=== PATIENT | male | born 1945 | race Caucasian/White ===

== ENCOUNTER 2016-11-16 09:54 | Observation (INO) | payer MEDICARE, BC ==
[2016-11-16] MEDS ORDERED: ceFAZolin 2 GM PREMIX(*) 2 GM/50 ML BAG IVPB ONE (11:00)
[2016-11-16 11:04] LABS: Hematocrit 46 % (42-52); Hemoglobin 15.3 g/dl (14.0-18.0); Mean Corpuscular HGB Conc 34 g/dl (31-36); Mean Corpuscular Hemoglobin 32 pg (27-31); Mean Corpuscular Volume 96 fL (80-94); Mean Platelet Volume 8 um3 (7.4-10.4); Red Blood Count 4.77 10^6/ul (4.0-5.4); Red Cell Distribution Width 13 % (10.5-15); White Blood Count 7.8 10^3/ul (3.5-10.8)
[2016-11-16] MEDS ORDERED: Diazepam TAB(*) 5 MG PO PRN (11:05)
[2016-11-16 11:14] LABS: BUN/Creatinine Ratio 16.7 (8-20); Calcium 9.8 mg/dL (8.6-10.3); EGFR African American 86.7 (>60); EGFR Non-African American 67.4 (>60); Potassium 4.3 mmol/L (3.5-5.0)
[2016-11-16] MEDS ORDERED: NS 0.9% 1000 ML* 1,000 ML IV SCH (11:15)
[2016-11-16] MEDS ORDERED: Lidocaine 1% INJ* 10 MG/ML 30 ML SDV ONE (12:16)
[2016-11-16] MEDS ORDERED: Midazolam* 1 MG/ML 5 ML VIAL (5 MG) ONE ×2 (12:16→12:39)
[2016-11-16] MEDS ORDERED: fentaNYL* 50 MCG/ML 2 ML VIAL (100 MCG VIAL) ONE (12:16)
[2016-11-16] MEDS ORDERED: Iohexol 300 (CONTRAST) 10 ML SDV ONE (12:16)
[2016-11-16] MEDS ORDERED: Flumazenil* 0.1 MG/ML 5 ML MDV ONE (12:32)
[2016-11-16] MEDS ORDERED: Naloxone* 0.4 MG/ML 1 ML VIAL ONE (12:32)
[2016-11-16] MEDS ORDERED: Zolpidem TAB* 5 MG PO PRN (12:35)
[2016-11-16] MEDS ORDERED: Acetaminophen TAB* 325 MG PO PRN (13:33)
[2016-11-16] MEDS ORDERED: oxyCODONE/Acetamin 5/325 MG* TAB PO PRN (13:33)
[2016-11-16] MEDS ORDERED: ceFAZolin 500 MG VIAL(*) 500 MG VIAL IVPB SCH (14:00)
--- NOTE | 2016-11-16 16:10 | RAD ---
HISTORY: Bradycardia COMPARISONS: None VIEWS:1: Single frontal portable view of the chest at 3:35 PM FINDINGS: LINES AND TUBES: A left-sided pacemaker is noted CARDIOMEDIASTINAL SILHOUETTE: The cardiomediastinal silhouette is normal for portable technique. PLEURA: The costophrenic angles are sharp. No pleural abnormalities are noted. LUNG PARENCHYMA: The lungs are clear. ABDOMEN: The upper abdomen is clear. There is no subphrenic gas. BONES AND SOFT TISSUES: No bone or soft tissue abnormalities are noted. IMPRESSION: NO ACTIVE CARDIOPULMONARY DISEASE.
[2016-11-16] MEDS: ceFAZolin 500 MG VIAL(*) 500 MG in NS 0.9% 50 ML* 50 ML IVPB SCH (17:49)
[2016-11-16] MEDS: Acetaminophen TAB* 325 MG PO PRN (17:49)
[2016-11-16] MEDS ORDERED: Latanoprost 0.005%* 2.5 ml BTL BOTH EYES SCH (18:00)
[2016-11-16] MEDS: Diclofenac 1% GEL (NF) 100 GM TUBE TOPICAL SCH (20:15)
[2016-11-17] MEDS: Flecainide TAB* 100 MG PO SCH ×2 (00:26→07:32)
[2016-11-17] MEDS: ceFAZolin 500 MG VIAL(*) 500 MG in NS 0.9% 50 ML* 50 ML IVPB SCH ×2 (00:26→05:50)
--- NOTE | 2016-11-17 04:26 | OP ---
DATE OF OPERATION: 11/16/16 - ROOM #432 DATE OF : 45 SURGEON: Dr. Mari Wright. ANESTHESIA: MAC. PRE-OP DIAGNOSES: 1. Sick sinus syndrome. 2. Paroxysmal atrial fibrillation. POST-OP DIAGNOSES: 1. Sick sinus syndrome. 2. Paroxysmal atrial fibrillation. OPERATIVE PROCEDURE: Pacemaker implantation. ESTIMATED BLOOD LOSS: Less than 5 cc. COMPLICATIONS: None. DESCRIPTION OF PROCEDURE: The indications, risks, and benefits have been discussed with the patient and his on multiple occasions and additional questions were answered this morning. The left subclavian fossa was prepped and draped in the usual sterile fashion and a time-out procedure was called. The patient received a total of 28 cc of 1% lidocaine for local anesthesia as well as 5 mg of Versed and 50 mcg of fentanyl for sedation. The patient received 10 cc of radiopaque dye injected in the left upper extremity outlining the left axillary and left subclavian vein. Following this , local lidocaine was infused. Following this, the patient had a 2.5 cm incision made in the left subclavian fossa. Using Bovie and blunt dissection, the incision was extended to the level of the pectoralis muscle. Additional lidocaine was infused inferiorly and medially using Metzenbaum scissors and the fascia was spread using blunt dissection and a small pocket was fashioned inferiorly and medially. Using a modified Seldinger technique, the left subclavian vein was cannulated with fluoroscopic guidance. A guidewire inserted. This procedure was repeated with a second guidewire. Using an introducer technique, the right ventricular lead was guided into the right ventricular apex and actively fixed in place. Pacing and sensing thresholds were checked and found to be good. Using the second guidewire, a second lead was guided into the right atrial appendage and actively fixed in place. There were some mild atrial dysrhythmias, nonsustained. Pacing and sensing thresholds were good. The leads were then sutured to the pectoralis muscle using 0 silk suture taking care with good placement. The pocket was copiously irrigated with normal saline. The leads were attached to the device and the device was placed into pocket. The incision was closed with absorbable sutures 2-0 followed by 4-0, followed by uyen and an external dressing. FINDINGS: The system is an MRI compatible system. The device is a Affymax A2DR01, serial #[id number]. The atrial lead is a Medtronic model 5076-52, serial # [id number]. The ventricular lead is a [employer] model 5076-58, serial # [id number]. The atrial lead impedance is 782 ohms with P-waves sensed at 4.2 mV , and an atrial pacing threshold of 1.2 volts at 0.5 msec. The ventricular lead impedance is 1049 with R-wave sensed at 6 mV, and a ventricular pacing threshold of 0.7 volts at 0.5 msec. The patient was programmed in DDD mode with a low rate of 60 beats per minute from the OR. He was hemodynamically stable throughout the procedure and on transfer to the floor. There were no complications. CC: Dr. Santos* [id number]/[facility] #: [id number] MTDD
[2016-11-17] MEDS: Diclofenac 1% GEL (NF) 100 GM TUBE TOPICAL SCH (07:34)
[2016-11-17] MEDS: Acetaminophen TAB* 325 MG PO PRN (07:40)
--- NOTE | 2016-11-17 08:45 | RAD ---
INDICATION: Device implant COMPARISON: November 16, 2016 TECHNIQUE: PA and lateral dual-energy views were obtained. FINDINGS: Bones/Soft Tissues: There are no acute bony findings. There is recent placement of a cardiac pacemaker. The generator and wires appear intact. Cardiomediastinal: The cardiomediastinal silhouette is normal. There is no CHF. Lungs: There are no infiltrates. There is no pneumothorax. Pleura: There are no pleural effusions. Other: None IMPRESSION: CARDIAC PACEMAKER. LUNGS CLEAR.
[2016-11-17] MEDS ORDERED: FLECAINIDE 50 MG PO ONE (09:00)
[2016-11-17] MEDS ORDERED: Metoprolol Succinate XL TAB* 50 MG PO SCH (09:00)
[2016-11-17] MEDS ORDERED: Famotidine TAB* 20 MG PO SCH (09:00)
[2016-11-17] MEDS ORDERED: Potassium Chlor TAB* 20 MEQ TAB.ER PO SCH (09:00)
[2016-11-17] MEDS ORDERED: Cholecalciferol TAB* 400 UNIT PO SCH (09:00)
[2016-11-17] MEDS ORDERED: Rivaroxaban TAB(*) 10 MG PO SCH (09:00)
[2016-11-17 10:41] VITALS: BP 126/78
[2016-11-17] MEDS ORDERED: Flecainide TAB* 100 MG PO SCH (21:00)
[2016-11-18] MEDS ORDERED: Rivaroxaban TAB(*) 20 MG TAB PO SCH (09:00)
--- NOTE | 2016-11-20 09:58 | DS ---
CC: Dr. Magan Santos DISCHARGE SUMMARY: DATE OF ADMISSION: 11/16/16 DATE OF DISCHARGE: 11/17/16 HISTORY OF PRESENT ILLNESS AND HOSPITAL COURSE: Mr. Leach is a 71-year-old gentleman with paroxysma l atrial fibrillation who had demonstrated sinus pauses while on flecainide/antiarrhythmics. He con tinues to have paroxysmal atrial fibrillation and was admitted for elective dual-chamber pacemaker i mplantation to allow for antiarrhythmic treatment for his tachyarrhythmias. The patient underwent implantation of a dual-chamber Medtronic MRI compatible device. During implan tation, he had transient atrial fibrillation, but this had resolved within the lab. Overnight, he d id go into atrial fibrillation with a rapid ventricular rate. His QT intervals were prolonged. So, an antiarrhythmic was not initiated. Beta robyn was provided for rate control. The patient had mild incisional pain and was aware of the racing of the heart, but did not have any significant symptoms. No dyspnea, chest pain, pressure, heaviness, orthopnea, or PND. The patient has a past medical history of: 1. Paroxysmal atrial fibrillation. 2. Dizziness with symptomatic bradycardia (4-second pauses). 3. Paroxysmal atrial flutter. 4. Reflux. 5. Erectile dysfunction. PHYSICAL EXAMINATION: On exam, on the day of discharge, the patient is 5 feet 8 inches, weighs 150 pounds with a BMI of 23. His heart rate was 110 when I examined him, but at the time of discharge, post metoprolol, it was 70 beats a minute, oxygen saturation 100% on room air, blood pressure 126/78 , post beta robyn. General Appearance: Fit-appearing older gentleman in no acute distress. Psycho logically, calm, cooperative, pleasant. Neurologically, awake, alert, and oriented to person, place , and time. Cranial nerves II through XII intact. Normal sensory and motor function in the upper a nd lower extremities, and normal gait. Skin: Warm and dry. Incision in the subclavian fossa, stapl es on. No hematoma. No ecchymosis. No infection. Breath sounds are clear with good effort. No wh eezes, rales, or rhonchi. Coronary: S1, S2 regular without murmurs or rubs. Abdomen: Soft, flat. Active bowel sounds. Lower extremities: Free of edema. Chest x-ray on the day of the implantation and the day after the implantation showed good lead place ment. No evidence of pneumothorax or abnormalities in the lung savage. The pacemaker interrogation on the day of discharge confirmed the patient was in atrial fibrillation with variable block. The fib/flutter A waves were sensed at 5.9 millivolts with an atrial lead imp edance of 494 milliseconds. Unable to check atrial pacing threshold. The ventricular lead impedanc e was 646 ohms with R waves sensed at 14.9 millivolts and a ventricular pacing threshold of 0.5 V at 0.4 milliseconds. He had been in AFib for 9 hours. DISCHARGE MEDICATIONS: The patient was discharged with the following medications: 1. Tylenol p.r.n. 2. Bimatoprost ophthalmic drops. 3. Keflex 500 mg t.i.d. x10 doses. 4. Cholecalciferol (vitamin D) 400 mg a day. 5. Diclofenac gel. 6. Flecainide 100 mg b.i.d. 7. Ibuprofen to be resumed, but to wait a week. 8. Toprol-XL 50 mg a day. 9. Potassium chloride 20 mEq a day. 10. Ranitidine 300 mg a day. 11. Xarelto 20 mg a day, to resume the day of discharge. 12. Sildenafil p.r.n. 13. Zolpidem 2.5 mg q.h.s. We will see the patient in the office in 1 week for a wound check as well as EKG and he knows to astrid l on a p.r.n. basis. Instructions for wound care were verbally discussed with the patient in the pr esence of his and also provided with handouts on discharge. [id number]/[facility] #: [id number]
== END 2016-11-17 11:15 | disposition home or self-care (01) ==
LOC: CHICATH 09:54 → MEDTELE 13:33
PROVIDERS: ADMIT Specialist; ATTEND Specialist
DX: I49.5 Sick sinus syndrome (principal); I48.0 Paroxysmal atrial fibrillation; K21.9 Gastro-esophageal reflux disease without esophagitis; N52.9 Male erectile dysfunction, unspecified; Z79.01 Long term (current) use of anticoagulants; Z79.899 Other long term (current) drug therapy; Z88.8 Allergy status to other drugs, medicaments and biological substances; Z87.891 Personal history of nicotine dependence
CPT/HCPCS: 33208; 36415; 71010; 71020; 80048; 85025; 85610; 85730; 93005; 96365; 96366; A9270-GY; C1785; C1898; G0378; J0690; J2001; J2250; J2310; J3010; Q9967

== ENCOUNTER 2017-07-16 08:59 | Inpatient (IN) | payer MEDICARE, OTHER ==
[2017-07-16 10:34] LABS: Hematocrit 44 % (42-52); Hemoglobin 15.2 g/dl (14.0-18.0); Mean Corpuscular HGB Conc 34 g/dl (31-36); Mean Corpuscular Hemoglobin 33 pg (27-31); Mean Corpuscular Volume 95 fL (80-94); Mean Platelet Volume 8 um3 (7.4-10.4); Red Blood Count 4.67 10^6/ul (4.0-5.4); Red Cell Distribution Width 13 % (10.5-15); White Blood Count 5.3 10^3/ul (3.5-10.8)
[2017-07-16 10:51] LABS: BUN/Creatinine Ratio 22.3 (8-20); Calcium 9.6 mg/dL (8.6-10.3); EGFR African American 83.1 (>60); EGFR Non-African American 64.6 (>60); Magnesium 2.1 mg/dL (1.9-2.7)
[2017-07-16] MEDS ORDERED: Dofetilide CAP* 250 MCG PO SCH (12:00)
--- NOTE | 2017-07-16 12:55 | RAD ---
INDICATION: Atrial fibrillation. COMPARISON: Comparison is made with a prior chest x-ray study from November 17, 2016. TECHNIQUE: Dual-energy PA and lateral views of the chest were obtained. FINDINGS: The heart is within normal limits in size and configuration. There is a dual-chamber transvenous pacemaker present. There are couple small calcific nodules which project above the left lung base which appear unchanged. The lungs are otherwise clear. No pleural effusion is seen. IMPRESSION: CARDIAC PACEMAKER IN PLACE, NO EVIDENCE FOR ACUTE FINDING.
[2017-07-16] MEDS ORDERED: Acetaminophen TAB* 325 MG PO PRN (13:11)
[2017-07-16] MEDS ORDERED: Dofetilide CAP* 250 MCG PO ONE (23:00)
[2017-07-16] MEDS: Zolpidem TAB* 5 MG PO PRN (23:07)
--- NOTE | 2017-07-16 23:59 | HP ---
CC: Brittany Herrera MD; Mari Wright MD * ADMISSION HISTORY AND PHYSICAL: DATE OF ADMISSION: 07/16/17 INDICATION FOR ADMISSION: Atrial fibrillation, Tikosyn initiation. HISTORY OF PRESENT ILLNESS: The patient is a 71-year-old gentleman with a history of paroxysmal atrial fibrillation who comes in today for evaluation and initiation of Tikosyn. The patient has had paroxysmal atrial fibrillation, he has been diagnosed with sick sinus syndrome. The patient had a pacemaker implantation in October 2016. Since then, he has had intermittent episodes of atrial fibrillation with mild symptoms. The patient did get an evaluation with Dr. Juan Diego Leung, who recommended Tikosyn for suppression of his atrial fibrillation. The patient is waiting to see if he would like an ablative procedure. When speaking with the patient, he has no obvious symptoms except for when he is in atrial fibrillation. He is in atrial fibrillation 42% of the time. OUTPATIENT MEDICATIONS: 1. Xarelto 20 mg a day. 2. Ambien 5 mg q.h.s. 3. Zovirax and Voltaren cream as needed. ALLERGIES: He is intolerant of SELDANE and PSEUDOEPHEDRINE. PAST MEDICAL HISTORY: Significant for paroxysmal atrial fibrillation, sick sinus syndrome, pacemaker implantation. FAMILY HISTORY: His mother had a history of atrial flutter. His siblings are healthy, he had one at 54 of COPD. SOCIAL HISTORY: He is . He is currently retired. Former smoker, he quit in the 's. He drinks wine 5 times a week. He gets regular exercise. PHYSICAL EXAMINATION VITAL SIGNS: Height is 5 feet 8 inches, weight is 153 pounds. Temperature 98.1 , heart rate 65, blood pressure 119/61, respiratory rate is 16, oxygen saturation 100% on room air. HEENT: Sclerae anicteric. Oropharynx is pink without erythema. Carotids are 2 + without bruits. JVD is normal. Thyroid is normal. CARDIAC EXAM: S1, S2, without any murmurs, rubs or gallops. LUNGS: Clear to auscultation. EXTREMITIES: Showed no edema. He has 2+ pulses throughout. The patient is awake and alert and oriented. He moves all 4 extremities equally. DIAGNOSTIC STUDIES/LAB DATA: CBC within normal limits. Chemistries within normal limits. Magnesium 2.1. EKG shows normal sinus rhythm at 60 beats per minute. IMPRESSION: This is a 71-year-old gentleman with a history of paroxysmal atrial fibrillation who has been admitted for Tikosyn initiation. The patient will be started at 250 mcg b.i.d. and be followed according to protocol. [id number]/[facility] #: [id number] MTDD
[2017-07-17] MEDS ORDERED: Dofetilide CAP* 250 MCG PO SCH (10:00)
[2017-07-17 10:44] LABS: BUN/Creatinine Ratio 18.7 (8-20); Calcium 9.6 mg/dL (8.6-10.3); EGFR African American 87.6 (>60); EGFR Non-African American 68.1 (>60); Magnesium 2.4 mg/dL (1.9-2.7); Potassium 3.9 mmol/L (3.5-5.0)
[2017-07-17] MEDS: Dofetilide CAP* 125 MCG PO SCH ×2 (11:04→22:12)
[2017-07-17] MEDS: Rivaroxaban TAB(*) 20 MG TAB PO SCH (17:13)
[2017-07-17] MEDS: PTO: Bimatoprost 0.01% OPHTH (NF) 2.5 ML BTL BOTH EYES SCH (22:26)
[2017-07-18] MEDS: Zolpidem TAB* 5 MG PO PRN ×2 (00:03→21:43)
[2017-07-18] MEDS: ISTALOL LEFT EYE SCH (08:07)
[2017-07-18 10:02] LABS: BUN/Creatinine Ratio 18.5 (8-20); Calcium 9.9 mg/dL (8.6-10.3); EGFR African American 86.7 (>60); EGFR Non-African American 67.4 (>60); Magnesium 2.4 mg/dL (1.9-2.7); Potassium 4.2 mmol/L (3.5-5.0)
[2017-07-18] MEDS: Dofetilide CAP* 125 MCG PO SCH ×2 (10:33→21:43)
--- NOTE | 2017-07-18 13:25 | PN ---
Subjective Date of Service: 07/18/17 - CC: paroxysmal atrial fib/flutter Interval History: The patient went into atrial flutter. No new c/o with the patient, he is vaguely aware of dysrhythmia. Ambulating w/o difficulty. Medications Active Medications: Acetaminophen (Tylenol Tab*) 650 mg PO Q6H PRN PRN Reason: PAIN - MILD Bimatoprost (Lumigan 0.01% Ophth (Nf)) 1 drop BOTH EYES BEDTIME [facility] Last Admin: 07/17/17 22:26 Dose: 1 drop Dofetilide (Tikosyn Cap*) 125 mcg PO Q12H [facility] Last Admin: 07/18/17 10:33 Dose: 125 mcg Pto: Istalol (Imolol Maleate Opth Solution 0.5%) 1 drop LEFT EYE DAILY [facility] Last Admin: 07/18/17 08:07 Dose: 1 drop Rivaroxaban (Xarelto (*)) 20 mg PO DAILY@1700 [facility] Last Admin: 07/17/17 17:13 Dose: 20 mg Zolpidem Tartrate (Ambien Tab*) 5 mg PO BEDTIME PRN PRN Reason: SLEEP Last Admin: 07/18/17 00:03 Dose: 5 mg Objective Vital Signs: Temp Pulse Resp BP Pulse Ox 98.4 F 73 18 107/66 98 07/18/17 11:38 07/18/17 11:38 07/18/17 11:38 07/18/17 11:38 07/18/17 11:38 Oxygen Devices in Use Now: None Appearance: lean fit appearing older gentleman reading in no acute distress. Eyes: No Scleral Icterus, PERRLA Ears/Nose/Mouth/Throat: NL Teeth, Lips, Gums, Clear Oropharnyx, Mucous Membranes Moist Neck: NL Appearance and Movements; NL JVP, Trachea Midline Respiratory: Symmetrical Chest Expansion and Respiratory Effort, Clear to Auscultation Cardiovascular: NL Sounds; No Murmurs; No JVD - tachycardic, regular Abdominal: NL Sounds; No Tenderness; No Distention, No Hepatosplenomegaly Extremities: No Edema Skin: No Rash or Ulcers Neurological: Alert and Oriented x 3, NL Muscle Strength and Tone Lines/Tubes/Other Access: Clean, Dry and Intact Peripheral IV Laboratory Results: 07/16/17 09:35 07/18/17 09:16 EKG Data: Monitor: atrial flutter, variable block, PVC's, V. couplets and one V. triplet. ECG: atrial flutter, QT 400-420, QTc 470-485 Assessment/Plan 71 yo with paroxysmal afib/flutter, admitted in NSR for Tikosyn loading. 250 mcg BID led to prolonged QTc therefore decreased to 125 mcg BID and now in atrial flutter. The patient typically self cardioverts. Plan: Continue current medications including Tikosyn. If in atrial flutter in AM, electrical cardioversion.
[2017-07-18] MEDS: Rivaroxaban TAB(*) 20 MG TAB PO SCH (17:27)
[2017-07-18] MEDS: PTO: Bimatoprost 0.01% OPHTH (NF) 2.5 ML BTL BOTH EYES SCH (21:43)
[2017-07-19] MEDS: ISTALOL LEFT EYE SCH (09:18)
[2017-07-19] MEDS: Dofetilide CAP* 125 MCG PO SCH (09:18)
[2017-07-19] MEDS ORDERED: Naloxone* 0.4 MG/ML 1 ML VIAL ONE (09:52)
[2017-07-19] MEDS ORDERED: Flumazenil* 0.1 MG/ML 5 ML MDV ONE (09:52)
[2017-07-19] MEDS ORDERED: fentaNYL* 50 MCG/ML 2 ML VIAL (100 MCG VIAL) ONE (09:52)
[2017-07-19] MEDS ORDERED: Midazolam* 1 MG/ML 10 ML VIAL (10 MG) ONE (09:52)
[2017-07-19 11:59] VITALS: BP 105/63
--- NOTE | 2017-07-19 19:54 | CARD ---
CC: Dr. Brittany Herrera * ELECTRICAL CARDIOVERSION: DATE OF PROCEDURE: 07/19/17 - ROOM #443 PROCEDURE: Electrical cardioversion. PREPROCEDURE DIAGNOSIS: Atrial flutter. POSTPROCEDURE DIAGNOSIS: Atrial flutter. The indications, risks, and benefits of the procedure were discussed with the patient, and he was amenable to proceeding. The EKG looked like atypical flutter. The patient had been loaded with Tikosyn 125 mcg b.i.d. DESCRIPTION OF PROCEDURE: The AP patches were applied. A time-out procedure was called. He received initially 2 mg of Versed and 25 mcg of fentanyl for sedation and 50 joules of energy was delivered across the chest wall, but it was not successful and it looked like he went from atrial flutter to atrial fib. Additional 2 mg of Versed was provided for sedation and the patient was then cardioverted with 200 joules synchronously delivered across the chest wall , which initially showed a paced rhythm, difficult to see atrial activity, but he then became obvious that he had converted to normal sinus rhythm. The patient was hemodynamically stable throughout the procedure. Currently, he is in sinus rhythm at a rate of 62 beats a minute, oxygen saturation 96%, respiratory rate 14, and blood pressure 127/69. CONCLUSION: Successful cardioversion requiring 2 shocks as above. [id number]/[facility] #: [id number] MEET
--- NOTE | 2017-07-19 21:59 | DS ---
CC: Brittany Herrera MD; Juan Diego Leung MD * DISCHARGE SUMMARY: DATE OF ADMISSION: 07/16/17 DATE OF DISCHARGE: 07/19/17 HISTORY OF PRESENT ILLNESS: Mr. Leach is a 71-year-old active gentleman, plays tennis regularly, with a long history of paroxysmal atrial fibrillation and flutter. He has been brought in for elective Tikosyn loading to try and control his dysrhythmia. PAST MEDICAL HISTORY: The patient has a past medical history of paroxysmal atrial fibrillation/flutter, sick sinus syndrome with dual chamber pacemaker, history of reflux and erectile dysfunction. OUTPATIENT MEDICATIONS: Include: 1. Xarelto 20 mg a day. 2. Ambien 5 mg p.r.n. sleep. 3. Vitamin C. 4. Ibuprofen 200 mg p.r.n. 5. Viagra p.r.n. 6. Zovirax 5% p.r.n. 7. Voltaren 1% p.r.n. 8. Lumigan ophthalmic drops 1 drop to each eye q.h.s. 9. Istalol 0.5% ophthalmic drops, 1 drop to the left eye q.a.m. FAMILY HISTORY: Significant in that his mother had a history of atrial flutter and hypertension. He had a sibling who at age 54 of COPD. Another sibling with atrial flutter. SOCIAL HISTORY: The patient is . Continues to work, very active, plays aggressive tennis regularly. Former smoker, distant, smoked a pipe for 1 year in his 20s. No history of recreational drug use. Occasional wine and caffeine. HOSPITAL COURSE: The patient was initially restarted on dofetilide 250 mcg b.i.d.; however, his QT interval went up to the upper limits of normal and therefore, the dose was decreased to 125 mcg b.i.d. The patient then went into what appeared to atypical atrial flutter on EKG and did not spontaneously cardiovert. On the last day of his admission when he was fully loaded, he underwent successful electrical cardioversion to normal sinus rhythm. The patient's most recent labs are from 07/16/17 with a white count of 5.3, hemoglobin 15.7, hematocrit 43, mean cell volume 95. His most recent electrolytes were from 07/18/17, sodium 137, potassium 4.2, chloride 102, bicarb 30, BUN 20, creatinine 1.08, glucose 157, magnesium 2.4. A 12-lead ECG from this morning, pre-cardioversion consistent with atrial flutter with variable block, two PVCs in a 10-second strip and a QRS axis of + 60 with a corrected QT interval of 442 milliseconds. A 12-lead ECG post- cardioversion is pending. MEDICATIONS ON DISCHARGE: Will include Tikosyn 125 mcg b.i.d. and the above admission medications. He will follow up in our office in July of this year for EKG and pacer followup. The elevated glucoses were noted and we may need to consider checking a hemoglobin A1c or advise dietary modification for concentrated sweets, but this can be followed up as an outpatient with his primary care physician. [id number]/[facility] #: [id number] MEET
== END 2017-07-19 13:56 | disposition home or self-care (01) | DRG 310 ==
LOC: OBSVTOIN 08:59 → MEDTELE 08:59
PROVIDERS: ADMIT Specialist; ATTEND Specialist
PROC: 5A2204Z Restoration of Cardiac Rhythm, Single (ICD-10-PCS; principal; 2017-07-19)
DX: I48.92 Unspecified atrial flutter (principal); K21.9 Gastro-esophageal reflux disease without esophagitis; I48.0 Paroxysmal atrial fibrillation; I49.3 Ventricular premature depolarization; N52.9 Male erectile dysfunction, unspecified; Z79.01 Long term (current) use of anticoagulants; Z72.89 Other problems related to lifestyle; Z82.49 Family history of ischemic heart disease and other diseases of the circulatory system; Z88.8 Allergy status to other drugs, medicaments and biological substances; Z82.5 Family history of asthma and other chronic lower respiratory diseases; Z87.891 Personal history of nicotine dependence; Z95.0 Presence of cardiac pacemaker
CPT/HCPCS: 36415; 71020; 80048; 83735; 85027; 93005; A9270-GY; J2250; J2310; J3010